=== PATIENT | female | born 1955 | race Caucasian/White ===

== ENCOUNTER → 2016-12-20 | Outpatient (CLI) | payer MEDICARE, OTHER ==
--- NOTE | 2016-12-20 10:05 | CT ---
EXAMINATION TYPE: CT soft tissue neck wo con DATE OF EXAM: 12/20/2016 HISTORY: Right post auricular otalgia, cervical myalgia, scoliosis, degenerative osteoarthritis COMPARISON: NONE CT DLP: 496 mGycm. Automated Exposure Control for Dose Reduction was Utilized. TECHNIQUE: CT scan of the neck is performed without and with IV Contrast, axial images are obtained, coronal and sagittal reformatted images are reviewed. FINDINGS: There is apical pleural scarring on the right. Visualized portions of the lungs are otherwi se clear. The proximal aortic arch is mildly aneurysmal measuring 3.2 cm. The distal arch is normal i n caliber measuring 2.9 cm. Visualized intracranial structures are unremarkable. Visualized portions of the paranasal sinuses and mastoids are clear. There is a mild reversal of the normal thoracic lordosis. Alignment is maintained. Atlantoaxial relat ionships are normal. There is degenerative disc disease and hypertrophic spondylosis at C5-6 and C6-7. There is uncoverteb ral joint disease at these levels. The facets are unremarkable. Major salivary glands are normal. The parapharyngeal, oropharyngeal and laryngeal soft tissues are normal. The thyroid gland is somewha t small and slightly heterogenous. There is some shotty adenopathy in the deep cervical chain bilaterally. No pathologic adenopathy is s een. Limited views through the middle ears show no definite abnormality. IMPRESSION: 1. NORMAL SOFT TISSUE CT OF THE NECK. 2. DEGENERATIVE CHANGE WITHIN THE SPINE.
== END | disposition home or self-care (01) ==
LOC: RADCTMAIN 08:50
PROVIDERS: ATTEND Otolaryngology
DX: M47.812 Spondylosis without myelopathy or radiculopathy, cervical region (principal); M41.9 Scoliosis, unspecified; M79.1 Myalgia; H92.01 Otalgia, right ear
CPT/HCPCS: 70490

== ENCOUNTER → 2024-01-27 | Outpatient (CLI) | payer MEDICARE, OTHER ==
[2024-01-27 10:37] LABS: INR 0.9 (<1.2); Prothrombin Time 9.8 sec (10.0-12.5)
[2024-01-27 10:42] LABS: Partial Thromboplastin Time 21.7 sec (22.0-30.0)
[2024-01-27 15:19] LABS: ALT 17 U/L (8-44); AST 25 U/L (13-35); Albumin 4.4 g/dL (3.8-4.9); Albumin/Globulin Ratio 1.52 Ratio (1.60-3.17); Alkaline Phosphatase 111 U/L (41-126); BUN/Creat Ratio 32.89 Ratio (12.00-20.00); Blood Urea Nitrogen 29.6 mg/dL (9.0-27.0); Carbon Dioxide 24.9 mmol/L (21.6-31.8); Chloride 101 mmol/L (96-109); Globulin 2.9 g/dL (1.6-3.3); Glucose 97 mg/dL (70-110); Potassium 3.8 mmol/L (3.5-5.5); Sodium 139 mmol/L (135-145); Total Bilirubin 0.4 mg/dL (0.3-1.2); Total Protein 7.3 g/dL (6.2-8.2)
[2024-01-27 15:58] LABS: HCT 35.6 % (37.2-46.3); HGB 11.8 g/dL (12.0-15.0); MCH 31.1 pg (27.0-32.0); MCHC 33.1 g/dL (32.0-37.0); MCV 93.7 FL (80.0-97.0); Mean Platelet Volume 9.8 FL (9.5-12.2); NRBC Per 100 WBC 0 X 10*3/uL (0.00-0.01); Platelet Count 326 X 10*3/uL (140-440); RDW 12.5 % (11.5-14.5)
== END | disposition home or self-care (01) ==
LOC: LABPAT 09:15
PROVIDERS: ATTEND Orthopaedic Surgery
DX: Z01.818 Encounter for other preprocedural examination (principal); M16.12 Unilateral primary osteoarthritis, left hip; R94.31 Abnormal electrocardiogram [ECG] [EKG]; Z22.322 Carrier or suspected carrier of Methicillin resistant Staphylococcus aureus
CPT/HCPCS: 36415; 80053; 83036; 85027; 85610; 85730; 86850; 86900; 86901; 87070; 93005

== ENCOUNTER 2024-02-07 05:38 | Day surgery (SDC) | payer MEDICARE, OTHER ==
[2024-01-30 13:06] VITALS: BMI 31.1
[2024-02-07] MEDS ORDERED: TRANEXAMIC 1,000 MG/100ML-NACL 1,000 MG in SALINE 1 100ML.BAG IVPB PRN (06:00)
[2024-02-07] MEDS ORDERED: ACETAMINOPHEN TAB 500 MG TAB PO PRN (06:00)
[2024-02-07] MEDS ORDERED: oxyCODONE ER 10 MG TAB.ER.12H PO PRN (06:00)
[2024-02-07] MEDS ORDERED: TRANEXAMIC 1,000 MG/100ML-NACL 1,000 MG in SALINE 1 100ML.BAG IV PRN (06:00)
[2024-02-07] MEDS: DOCUSATE 100 MG CAP PO PRN (06:31)
[2024-02-07] MEDS: KETOROLAC 15 MG/ML 1 ML VIAL IVP PRN (06:32)
[2024-02-07] MEDS: FAMOTIDINE 20 MG/2 ML VIAL IVP PRN (06:32)
[2024-02-07] MEDS: DEXAMETHASONE SOD PHOSPHATE 10 MG/ML 1 ML VIAL IV PRN (06:32)
[2024-02-07] MEDS: ONDANSETRON 4 MG/2 ML VIAL IVP PRN (06:33)
[2024-02-07] MEDS: LACTATED RINGERS 1,000 ML IV SCH (06:35)
[2024-02-07] MEDS: IV FLUID CONTINUATION 1,000 ML IV ONE (06:38)
[2024-02-07] MEDS: MIDAZOLAM 2 MG/2 ML VIAL IV PRN (06:40)
[2024-02-07] MEDS ORDERED: ROCURONIUM 10 MG/ML (5 ML VIAL) IV ONE (06:55)
[2024-02-07] MEDS ORDERED: ROPIVACAINE 5 MG/ML 30 ML VIAL ONE (06:55)
[2024-02-07] MEDS ORDERED: SUGAMMADEX SODIUM 200 MG/2 ML SDV IV ONE (06:55)
[2024-02-07] MEDS ORDERED: TRANEXAMIC 1,000 MG/100ML-NACL PREMIX BAG ONE (06:55)
[2024-02-07] MEDS ORDERED: PROPOFOL 10 MG/ML 20 ML VIAL IV ONE (06:55)
[2024-02-07] MEDS ORDERED: PHENYLEPHRINE-0.9% NACL SYG 1,000 MCG/10 ML SYRINGE ONE (06:55)
[2024-02-07] MEDS ORDERED: SUCCINYLCHOLINE CHLORIDE 200 MG/10 ML VIAL IV ONE (06:55)
[2024-02-07] MEDS ORDERED: DEXAMETHASONE SOD PHOSPHATE 4 MG/ML 1 ML VIAL ONE (06:55)
[2024-02-07] MEDS ORDERED: fentaNYL (PF) 50 MCG/ML 2 ML AMP ONE (06:55)
[2024-02-07] MEDS ORDERED: LIDOCAINE 1% INJ 10MG/ML (20 ML MDV) ONE (06:55)
[2024-02-07] MEDS: ROPIVACAINE/EPI/CLONIDINE/KET 50 ML SYRINGE MISCELLANE PRN (07:27)
[2024-02-07] MEDS ORDERED: HYDROmorphone 0.5 MG/0.5 ML SYRINGE IVP PRN ×3 (08:43)
[2024-02-07] MEDS: LACTATED RINGERS 1,000 ML IV ONE (08:43)
[2024-02-07] MEDS ORDERED: ONDANSETRON 4 MG/2 ML VIAL IVP PRN (08:43)
[2024-02-07] MEDS ORDERED: HYDROcodone/APAP 10-325MG 1 EACH TAB PO PRN (08:43)
[2024-02-07] MEDS ORDERED: NALOXONE 0.4 MG/ML 1 ML VIAL IV PRN (08:43)
[2024-02-07] MEDS ORDERED: MAGNESIUM HYDROXIDE 2,400 MG/30 ML CUP PO PRN (08:43)
--- NOTE | 2024-02-07 09:11 | P.OP ---
Date of Procedure: 02/07/24 Preoperative Diagnosis: 1. Severe left hip osteoarthritis 2. Former smoker - quit December 2023 Postoperative Diagnosis: 1. Severe left hip arthritis with femoral head fracture and collapse 2. Former cigarette smoker - quit December 2023 Procedure(s) Performed: Left direct anterior total hip arthroplasty Implants: 1. Avelina Trident II Acetabular Cup, Size #52 2. Avelina Accolade C Size #4 Femoral Stem, High Offset 3. Dual Mobility OD 42 mm, ID 28 mm, +4 mm neck Anesthesia: CHERYL, regional Surgeon: Hector Cortes Chief Development Officer #1: Campbell Black Estimated Blood Loss (ml): 200 IV fluids (ml): 600 Pathology: none sent Condition: stable Disposition: PACU Indications for Procedure: I had a long discussion with the patient in the office on the potential risks and complications of an elective total hip replacement through a direct anterior approach. Risks discussed include, but are certainly not limited to, risks from anesthesia, superficial infection requiring local wound care or antibiotics, deep tera-prosthetic joint infection and the treatment required to eradicate infection, intraoperative fracture, postoperative periprosthetic fracture, damage to local blood vessels or nerves particularly the lateral femoral cutaneous nerve, delayed wound healing requiring local wound care or possibly surgical debridement, hip dislocation, leg length discrepancy, soft tissue irritation around the total hip implant such as iliopsoas tendinitis or trochanteric bursitis, wear and osteolysis from the implants, squeaking or audible noises, groin pain, thigh pain, heterotopic ossification, stiffness, aseptic loosening of the implants, dissatisfaction with surgical outcome, need for revision surgery, DVT, PE, swelling of the operative extremity, acute coronary event, stroke, failure to thrive, and possibly loss of life or limb. The patient understands that while these are the most common complications after an elective hip replacement there are certainly other less common complications possible. They were given ample time to ask questions regarding the potential complications of a hip replacement. Following our discussion the patient provided their verbal and written consent to go forward with an elective total hip replacement. The patient has a history of cigarette smoking. She was able to quit 2 weeks prior to surgery. I encouraged her to continue smoking cessation throughout the perioperative period to help facilitate wound healing and lower her risk of infection. She understands her increased risk of delayed wound healing and infection if she resumes smoking. Operative Findings: There was a femoral head fracture with collapse. The patient was found to have very poor bone quality. Due to her poor bone quality I elected to use cemented femoral fixation. Description of Procedure: The patient was identified in the preoperative holding area and the correct hip was marked with my initials. I reviewed the procedure and consent with the patient. All of their questions were answered. The patient was then brought back into the operating room by anesthesia. While on the [facility] anesthesia was administered by the anesthesia team. Preoperative antibiotics and tranexamic acid were also given. After the patient was under anesthesia I examined their ankles to determine their preoperative leg length discrepancy. The skin over the anterior aspect of the hip was shaved to remove hair over the site of planned incision. Both feet and ankles were padded with webril and boots for the Dingess were applied. The patient was then carefully transferred onto the Dingess table. A perineal post was immediately placed. The arms were placed on arm holders and were well-padded. Both boots were secured to the spars on the Dingess table. The patient was positioned so that the pelvis was centered over the post. Nonsterile drapes were applied. A timeout was performed identifying the correct patient, operative extremity, and procedure. At this point fluoroscopy was brought in to take preoperative images of the pelvis and operative hip. Using the standing AP pelvis from the office as a template, a comparable image was obtained with fluoroscopy. A metallic bar was used to create a bi-ischial line for use as a reference to leg length adjustments during the procedure. Global offset was also measured on both the operative and nonoperative leg. Fluoroscopy was then brought out and a pre-scrub using a chlorhexidine scrub brush was performed. The operative limb was then prepped and draped in the standard sterile fashion. An anterior longitudinal incision was made lateral and distal to the ASIS. The skin and subcutaneous tissues were incised sharply. The underlying tensor fascia was identified and incised in its midportion. The fascia was dissected free from the underlying muscle and the muscle belly was retracted. A blunt tipped cobra retractor was placed over the superior neck under the muscle fibers of the gluteus minimus. The deep enveloping fascia of the tensor was incised. The anterior leash of vessels were then identified and cauterized. The fascia between the rectus and the capsule was then incised and the pre-capsular fat was excised. A second Cobra was placed inferior to the neck. The interval between the rectus and iliocapsularis and the hip capsule was developed and a retractor was placed carefully over the anterior rim of the acetabulum. A T-shaped anterior capsulotomy was performed. The superior capsular leaflet was left in place in the inferior capsular flap was excised. The Cobra retractors were placed intracapsularly. We then made a femoral neck osteotomy according to preoperative and intraoperative templating and confirmed the level of the osteotomy using fluoroscopic imaging. The femoral head was removed, passed off to the back table, and sized. The superior capsular flap was excised. Retractors were placed circumferentially exposing the acetabulum. We then circumferentially debrided the acetabulum free of labrum and osteophytes. The pulvinar was removed to fully visualize the cotyloid fossa. We then sequentially reamed to achieve peripheral fit and excellent bleeding subchondral bone. The socket was thoroughly irrigated. The acetabular component was impacted into the appropriate position using fluoroscopy to guide version, inclination, and depth of insertion taking care to have a comparable image of the AP pelvis to the standing image taken in the office. An excellent press-fit was achieved and final position was confirmed using fluoroscopy. The press fit was augmented with bony cancellus dome screws. The liner was then impacted into the socket. Attention was then turned to the femur. The remnant dorsal lateral capsule was excised. The short external rotators were visible and protected. A bone hook was used to confirm appropriate translation of the trochanter away from the acetabulum. The leg was then extended and adducted and the bone hook was used to elevate the femur for broaching. On inspection of the patient's proximal femur, they appeared to have poor bone quality so I elected to proceed with cemented fixation of the femoral component. A box osteotome and blunt tipped canal sound was then utilized to gain access to the femoral canal. We then sequentially broached the femur in appropriate anteversion until torsional stability was achieved and the implant was felt to have reached the appropriate size to allow trialing. The neck cut was brought flush to the trial broach with a calcar planar. A trial neck and head were then placed onto the broach and the hip was atraumatically reduced under direct visualization. External rotation to 90 was performed to assess stability. Fluoroscopy was brought in. An AP and lateral fluoroscopic image of the proximal femur was obtained to assess position and fill of the trial broach. An AP of the pelvis was then obtained and matched to the preoperative image taken. A bi-ischial bar was then placed and measurements were taken to assess changes in length and offset. The hip was then carefully dislocated, the proximal femur was exposed, and the trial implants were removed. The proximal femur was then prepared for cementing. The canal was thoroughly irrigated with pulsatile lavage to remove blood and marrow contents. A cement restrictor was placed to a depth just distal to the tip of the final implant. Epinephrine-soaked gauze was then packed into the proximal femur. 2 bags of cement were then mixed using a centrifuge and placed into a cement gun. Anesthesia was notified that cementing was about to commence to make sure the patient was appropriately ventilated and hydrated. Once the cement had reached appropriate consistency, the cement gun was used to fill the canal in a retrograde fashion starting at the restrictor. Cement was then pressurized into the canal with a blue tipped business line manager. The stem was then carefully introduced into the cement taking care to guide the implant into appropriate version. The stem was held in position until the cement had fully set. All extra cement was removed while the cement was hardening. The trunnion was cleansed and the final head was tapped into place to engage the [place] taper. The acetabulum was irrigated and visualized to be free of debris. The hip was carefully reduced. Stability was checked clinically with external rotation to 90 and there was no evidence of instability. Final fluoroscopic images were taken. The wound was then thoroughly irrigated and soaked with a dilute Betadine rinse for 3 minutes. 3 L of sterile saline was irrigated through the wound using pulsatile lavage. Local anesthetic cocktail was injected into the soft tissues around the surgical field. The wound was then closed in layers. A sterile dressing was placed over the surgical incision. The drapes were taken down and the patient was carefully transferred off of the Dingess table. Following removal of the boots the leg lengths felt acceptable. The patient was then taken to recovery room having tolerated the procedure well. Campbell Black PA-C was required as a skilled child nutrition assistant due to the complexity of surgery for patient positioning, draping, exposure, retraction, closure of wound, and application of dressing. PLAN: The patient can weight-bear as tolerated on the operative extremity. 2 doses of postoperative antibiotics. DVT prophylaxis with aspirin 81 mg twice a day based on preoperative risk stratification. Physical therapy for gait training.
[2024-02-07] MEDS: droPERidol 5 MG/2 ML VIAL IVP ONE (09:21)
--- NOTE | 2024-02-07 09:27 | FL ---
EXAMINATION TYPE: FL guidance operating room DATE OF EXAM: 02/07/2024 HISTORY: Fluoroscopy time Total dose area product (DAP) in uGy*m?, mGy*cm? (or similar): 2.2768 IMPRESSION: 1. Fluoroscopy time. [facility], , 02/07/2024 9:25 AM
--- NOTE | 2024-02-07 09:28 | XR ---
EXAMINATION TYPE: XR Hip Limited LT DATE OF EXAM: 02/07/2024 8:50 AM COMPARISON: Pre Operative Images if available both CT/MRI or plain film CLINICAL INDICATION: Female, 68 years old with history of Left Hip-Ant; TECHNIQUE: XR Hip Limited LT, multiple fluoroscopic images provided for procedure. Total fluoroscopy time: 39 seconds Total submitted images to PACS: 8 DAP: 2.2768 mGym2 Gycm2 uGym2 cGycm2 or equivalent. FINDINGS: Fluoroscopic images during internal fixation/arthroplasty demonstrate fixation hardware in appropriat e position. Hardware appears intact. No immediate complication identified. IMPRESSION: 1. No evidence for intraoperative complication. 2. Please see the operative/procedural note for further details. [facility], , 02/07/2024 9:26 AM
[2024-02-07] MEDS: HYDROmorphone 0.5 MG/0.5 ML SYRINGE IVP PRN (09:32)
[2024-02-07] MEDS: SODIUM CHLORIDE 0.9% 1,000 ML IV SCH (10:40)
[2024-02-07] MEDS: DOXYCYCLINE 100 MG CAP PO SCH (11:58)
[2024-02-07] MEDS: HYDROcodone/APAP 5-325MG 1 EACH TAB PO PRN (12:00)
[2024-02-07] MEDS: SENNOSIDES-DOCUSATE SODIUM 1 EACH TAB PO SCH (22:06)
[2024-02-07] MEDS: ASPIRIN 81 MG PO SCH (22:06)
[2024-02-08] MEDS: hydrOXYzine pamoate 25 MG CAP PO PRN (02:34)
[2024-02-08] MEDS: FAMOTIDINE 20 MG TAB PO SCH (07:34)
--- NOTE | 2024-02-08 08:35 | P.DS ---
Providers Date of admission: 02/07/2024 Attending physician: Hector Cortes Consults: 02/07/24 08:43 Consult Physician Routine Consulting Provider: Cong Saenz Consult Reason/Comments: Postop medical management Do you want consulting provider notified?: Yes Primary care physician: Cong Saenz Hospital Course: the patient is a very pleasant 68-year-old female who was admitted under my care yesterday and underwent an uncomplicated total hip replacement. Following surgery she was transferred to the orthopedic floor. She received 2 doses of postoperative antibiotics. She was started on aspirin for DVT prophylaxis. She was seen on postoperative day #1 and was doing well. She had complaints of pain in her left hip. Her thigh and calf are soft. Femoral nerve function was intact. She was able to actively plantarflex and dorsiflex her ankle and her toes. Internal medicine was consulted for preoperative medical management. She worked with physical therapy and did well. She was ultimately cleared for discharge home. Patient Condition at Discharge: Good Plan - Discharge Summary Discharge Rx Participant: No New Discharge Prescriptions: New Docusate [Colace] 100 mg PO BID #60 capsule Aspirin 81 mg PO BID #60 tab Celecoxib [CeleBREX] 200 mg PO DAILY PRN #30 cap PRN Reason: Pain HYDROcodone/APAP 5-325MG [[place] 5] 1 - 2 each PO Q6HR PRN #48 tab PRN Reason: Pain Omeprazole 20 mg PO DAILY #30 tab Ondansetron [Zofran] 4 mg PO Q6HR PRN #30 tab PRN Reason: Nausea No Action amLODIPine [Norvasc] 5 mg PO DAILY Ascorbic Acid [Vitamin C] 1,000 mg PO DAILY Atorvastatin [Lipitor] 40 mg PO HS Cholecalciferol (Vitamin D3) [Vitamin D3 (125 MCG = 5,000 IU)] 125 mcg PO DAILY Losartan [Cozaar] 100 mg PO DAILY HYDROcodone/APAP 5-325MG [[place] 5-325] 1 tab PO Q4HR PRN PRN Reason: Pain Chlorthalidone 25 mg PO DAILY Cider Vinegar [Apple Cider Vinegar] 300 mg PO DAILY Magnesium 1 tab PO DAILY Discharge Medication List Ascorbic Acid [Vitamin C] 1,000 mg PO DAILY 01/30/24 [History] Atorvastatin [Lipitor] 40 mg PO HS 01/30/24 [History] Chlorthalidone 25 mg PO DAILY 01/30/24 [History] Cholecalciferol (Vitamin D3) [Vitamin D3 (125 MCG = 5,000 IU)] 125 mcg PO DAILY 01/30/24 [History] Cider Vinegar [Apple Cider Vinegar] 300 mg PO DAILY 01/30/24 [History] HYDROcodone/APAP 5-325MG [[place] 5-325] 1 tab PO Q4HR PRN 01/30/24 [History] Losartan [Cozaar] 100 mg PO DAILY 01/30/24 [History] Magnesium 1 tab PO DAILY 01/30/24 [History] amLODIPine [Norvasc] 5 mg PO DAILY 01/30/24 [History] Aspirin 81 mg PO BID #60 tab 02/07/24 [Rx] Celecoxib [CeleBREX] 200 mg PO DAILY PRN #30 cap 02/07/24 [Rx] Docusate [Colace] 100 mg PO BID #60 capsule 02/07/24 [Rx] HYDROcodone/APAP 5-325MG [[place] 5] 1 - 2 each PO Q6HR PRN #48 tab 02/07/24 [Rx] Omeprazole 20 mg PO DAILY #30 tab 02/07/24 [Rx] Ondansetron [Zofran] 4 mg PO Q6HR PRN #30 tab 02/07/24 [Rx] Follow up Appointment(s)/Referral(s): Hector Cortes MD [Medical Doctor] - 2 Weeks Activity/Diet/Wound Care/Special Instructions: 1. Weight-bear as tolerated on your operative extremity unless instructed otherwise. Use a walker or other assistive device to ambulate. 2. Leave surgical dressing in place. If your dressing becomes saturated with blood, there is drainage, or the dressing becomes loose please contact the office. 3. It is okay to shower with your surgical dressing, but do not submerge in water (no hot tubs, bath's, swimming etc.) 4. Take your blood clot prevention medication as prescribed (aspirin, Eliquis, Xarelto, and Plavix are commonly prescribed medications for blood clot prevention) 5. While taking [place] or Percocet for pain take a stool softener (Ex: Colace) and drink lots of water. 6. Keep all follow-up appointments as scheduled. You will usually be seen in 1-2 weeks following surgery. 7. Please contact the office with any questions or concerns [phone] Discharge Disposition: HOME WITH HOME HEALTH SERVICES
[2024-02-08 10:23] LABS: Basophils # (A) 0.02 X 10*3/uL (0.00-0.10); Basophils % (A) 0.2 %; Eosinophils # (A) 0 X 10*3/uL (0.04-0.35); Eosinophils % (A) 0 %; HCT 26.6 % (37.2-46.3); HGB 8.9 g/dL (12.0-15.0); Lymphocytes # (A) 2.62 X 10*3/uL (0.90-5.00); Lymphocytes % (A) 22.2 %; MCH 31.1 pg (27.0-32.0); MCHC 33.5 g/dL (32.0-37.0); Mean Platelet Volume 9.7 FL (9.5-12.2); Monocytes # (A) 0.92 X 10*3/uL (0.20-1.00); Monocytes % (A) 7.8 %; NRBC Per 100 WBC 0 X 10*3/uL (0.00-0.01); Neutrophils # (A) 8.17 X 10*3/uL (1.80-7.70); Neutrophils % (A) 69.4 %; Platelet Count 241 X 10*3/uL (140-440); RBC 2.86 X 10*6/uL (4.10-5.20); RDW 12.9 % (11.5-14.5); WBC 11.78 X 10*3/uL (4.50-10.00)
--- NOTE | 2024-02-08 14:07 | P.CONS ---
History of Present Illness - Reason for Consult Consult date: 02/08/24 Medical management - History of Present Illness History of present illness; patient is a 68-year-old lady with past medical history significant for hypertension, hyperlipidemia who presented to the hospital for elective left total hip arthroplasty. Patient has been dealing with left hip pain for a while and was being seen outpatient by orthopedic surgery, all conservative measures had failed. Patient was scheduled for left hip arthroplasty on 02/06. Postoperatively internal medicine team were consulted for medical management REVIEW OF SYSTEMS: CONSTITUTIONAL: No fever, no malaise, no fatigue. HEENT: No recent visual problems or hearing problems. Denied any sore throat. CARDIOVASCULAR: No chest pain, orthopnea, PND, no palpitations, no syncope. PULMONARY: No shortness of breath, no cough, no hemoptysis. GASTROINTESTINAL: No diarrhea, no nausea, no vomiting, no abdominal pain. NEUROLOGICAL: No headaches, no weakness, no numbness. HEMATOLOGICAL: Denies any bleeding or petechiae. GENITOURINARY: Denies any burning micturition, frequency, or urgency. MUSCULOSKELETAL/RHEUMATOLOGICAL: Left hip pain ENDOCRINE: Denies any polyuria or polydipsia. The rest of the 14-point review of systems is negative. PHYSICAL EXAMINATION: GENERAL: The patient is alert and oriented x3, not in any acute distress. Well developed, well nourished. HEENT: Pupils are round and equally reacting to light. EOMI. No scleral icterus. No conjunctival pallor. Normocephalic, atraumatic. No pharyngeal erythema. No thyromegaly. CARDIOVASCULAR: S1 and S2 present. No murmurs, rubs, or gallops. PULMONARY: Chest is clear to auscultation, no wheezing or crackles. ABDOMEN: Soft, nontender, nondistended, normoactive bowel sounds. No palpable organomegaly. MUSCULOSKELETAL: left hip surgical incision seen EXTREMITIES: No cyanosis, clubbing, or pedal edema. NEUROLOGICAL: Gross neurological examination did not reveal any focal deficits. SKIN: No rashes. Assessment and plan Left hip osteoarthritis status post left total hip arthroplasty Hypertension Hyperlipidemia Monitor vital signs Monitor CBC Monitor CMP Continue pain management per orthopedics Continue DVT prophylaxis per orthopedics Resume home meds PT and OT consulted Labs and medication were reviewed.. Continue same treatment. Continue with symptomatic treatment. Resume home medication. Monitor labs and vitals. DVT and GI prophylaxis. Further recommendations as per clinical course of the patient Dictation was produced using [employer] dictation software. please excuse any grammatical, word or spelling errors. Past Medical History Past Medical History: Hyperlipidemia, Hypertension, Osteoarthritis (OA) Additional Past Medical History / Comment(s): Scoliosis History of Any Multi-Drug Resistant Organisms: None Reported Past Surgical History: Appendectomy, Joint Replacement Additional Past Surgical History / Comment(s): LASER SURGERY ON CERVIX, R knee [id number], ant TLH 02/07/2024 Past Anesthesia/Blood Transfusion Reactions: No Reported Reaction Past Psychological History: No Psychological Hx Reported Smoking Status: Former smoker Past Alcohol Use History: None Reported Additional Past Alcohol Use History / Comment(s): Quit smoking 01/08/24 Past Drug Use History: Marijuana Additional Drug Use History / Comment(s): Smokes occas at hs for sleep - Past Family History Mother Family Medical History: CVA/TIA Medications and Allergies Home Medications Medication Instructions Recorded Confirmed Type Ascorbic Acid [Vitamin C] 1,000 mg PO DAILY 01/30/24 02/07/24 History Atorvastatin [Lipitor] 40 mg PO HS 01/30/24 02/07/24 History Chlorthalidone 25 mg PO DAILY 01/30/24 02/07/24 History Cholecalciferol (Vitamin D3) 125 mcg PO DAILY 01/30/24 02/07/24 History [Vitamin D3 (125 MCG = 5,000 IU)] Cider Vinegar [Apple Cider Vinegar] 300 mg PO DAILY 01/30/24 02/07/24 History HYDROcodone/APAP 5-325MG [[place] 1 tab PO Q4HR PRN 01/30/24 02/07/24 History 5-325] Losartan [Cozaar] 100 mg PO DAILY 01/30/24 02/07/24 History Magnesium 1 tab PO DAILY 01/30/24 02/07/24 History amLODIPine [Norvasc] 5 mg PO DAILY 01/30/24 02/07/24 History Aspirin 81 mg PO BID #60 tab 02/07/24 Rx Celecoxib [CeleBREX] 200 mg PO DAILY PRN #30 cap 02/07/24 Rx Docusate [Colace] 100 mg PO BID #60 capsule 02/07/24 Rx HYDROcodone/APAP 5-325MG [[place] 5] 1 - 2 each PO Q6HR PRN #48 tab 02/07/24 Rx Omeprazole 20 mg PO DAILY #30 tab 02/07/24 Rx Ondansetron [Zofran] 4 mg PO Q6HR PRN #30 tab 02/07/24 Rx Allergies Allergy/AdvReac Type Severity Reaction Status Date / Time No Known Allergies Allergy Verified 02/07/24 06:19 Physical Exam Vitals: Vital Signs Temp Pulse Resp BP Pulse Ox 02/08/24 06:45 98.2 F 102 H 18 112/67 93 L 02/08/24 02:00 98.1 F 94 132/70 95 02/07/24 20:00 98.4 F 100 99/61 94 L 02/07/24 14:00 98.2 F 97 16 102/67 98 Intake and Output 02/07/24 02/08/24 02/08/24 22:59 06:59 14:59 Other: Voiding Method Toilet # Voids 1 Results CBC & Chem 7: 02/08/24 03:12 Labs: Abnormal Lab Results - Last 24 Hours (Table) 02/08/24 Range/Units 03:12 WBC 11.78 H (4.50-10.00) X 10*3/uL RBC 2.86 L (4.10-5.20) X 10*6/uL Hgb 8.9 L (12.0-15.0) g/dL Hct 26.6 L (37.2-46.3) % Immature Gran # 0.05 H (0.00-0.04) X 10*3/uL Neutrophils # 8.17 H (1.80-7.70) X 10*3/uL Eosinophils # 0 L (0.04-0.35) X 10*3/uL
[2024-02-08 15:03] VITALS: BP 120/73; PULSE 89; RESP 16; TEMP 97.7
--- NOTE | 2024-02-19 12:27 | P.ANPRN ---
Procedure Note - Anesthesia - Nerve Block Performed Left Jamie Single Time Out Performed: Yes Date of Procedure: 02/07/24 Procedure Start Time: 06:45 Procedure Stop Time: 06:50 Location of Patient: PreOp Indication: Acute Post-Operative Pain, Requested by Surgeon Sedation Type: Sedate with meaningful contact maintained Preparation: Sterile Prep Position: Supine Needle Types: Pajunk Needle Gauge: 21 Ultrasound used to visualize needle placement: Yes Ultrasound used to observe medication spread: Yes Blood Aspirated: No Pain Paresthesia on Injection Noted: No Resistance on Injection: Normal Image Stored and Saved: Yes Events: Uneventful and Well Tolerated (Ropivacaine 0.5% 20 cc plus dexamethasone 4 mg)
== END 2024-02-08 14:48 | disposition home health service (06) ==
LOC: OR 05:38 → 4SSUR 10:50 → OR 02-08 14:48
PROVIDERS: ATTEND Orthopaedic Surgery
DX: M16.12 Unilateral primary osteoarthritis, left hip (principal); Z87.891 Personal history of nicotine dependence
CPT/HCPCS: 27130; 97161; 64447; 85025; 73501; C1776; C1713; J2250; J0330; J1100 ×2; J0690; J2405; J2003; J3010; J3490; J2795; J1885; J2704; J1171; J1790; J2371